=== PATIENT | female | born 1975 | race Caucasian/White ===

== ENCOUNTER 2022-04-06 17:04 | Emergency (ER) | payer OTHER, SELFPAY ==
[2022-04-06 17:11] VITALS: BP 127/82; PULSE 100; RESP 16; TEMP 37.1; O2SAT 100
[2022-04-06 17:22] VITALS: BP 127/82; PULSE 100; RESP 16; TEMP 37.1; O2SAT 100
--- NOTE | 2022-04-06 17:23 | ED.FEMALEGU ---
HPI - Female Genitourinary General Chief complaint: Urogenital-Female Stated complaint: Poss UTI Time Seen by Provider: 04/06/22 17:23 Source: patient, RN notes reviewed and old records reviewed Mode of arrival: ambulatory Limitations: no limitations History of Present Illness HPI Narrative: 46 year old female who presents to [facility] care with complaints of 1 week duration of urinary urgency,and suprapubic discomfort, patient reports that she has irritation when she urinated. Patient denies any vaginal drainage or itching. Patient denies any concern for any STD exposure. Patient denies any fevers, chills or sweats, denies any nausea or vomiting or any diarrhea.She denies any CVA tenderness or pain to right lower abdominal quadrant. MD elicited complaint: dysuria, UTI and other (suprapubic tenderness) Onset (ago): week(s) (1) Severity scale (1-10): 5 Related Data Home Medications Medication Instructions Recorded Confirmed buspirone 5 mg tablet 5 mg PO DAILY PRN Anxiety 04/06/22 04/06/22 omeprazole 40 mg capsule,delayed 40 mg PO DAILY 04/06/22 04/06/22 release Allergies Allergy/AdvReac Type Severity Reaction Status Date / Time No Known Allergies Allergy Verified 04/06/22 17:36 Review of Systems Review of Systems: CONSTITUTIONAL: Denies fever, chills, or sweats. EYES: Denies visual changes, redness, or discharge. ENT: Denies rhinorrhea, congestion, sore throat, or otalgia. CARDIOVASCULAR: Denies chest pain, palpitations, or edema. RESPIRATORY: Denies cough or dyspnea. GASTROINTESTINAL: Positive for suprapubic abdominal pain,no nausea, vomiting, or diarrhea. GENITOURINARY: Positive for urinary urgency some mild dysuria no visible hematuria. SKIN: Denies rash or itching. MUSCULOSKELETAL: Denies back pain, joint pain, or myalgia. NEUROLOGIC: Denies headache, numbness, or weakness. PSYCHIATRIC: Denies anxiety or depression. All systems reviewed & are unremarkable except as noted in HPI and below PMFSH Past Medical History Medical History (Updated 04/07/22 @ 00:00 by Naif Barajas) Femur fracture, right GERD (gastroesophageal reflux disease) Surgical History Surgical History (Updated 04/06/22 @ 18:31 by Leonor L. Carol, [employer]PERATOR) H/O tubal ligation History of nasal surgery Social History Social History (Updated 04/06/22 @ 18:37 by Leonor Medina NP) Smoking status: Never smoker Alcohol intake: current Alcohol use details: social rare Substance use: never Substance use type: does not use Living arrangements: with family Gender identity (if verbalized by the patient): Female Comments At time of signature, agree with nursing past medical, surgical, social and family history. There is no relevant family history pertinent to the presenting complaint Exam Narrative: GENERAL: Well-appearing, well-nourished, and in no acute distress. HEAD: Normocephalic, atraumatic. EYES: PERRLA and EOMI. ENT: Nares clear, no rhinorrhea or epistaxis. Mucous membranes moist.TM's normal with good light reflex, throat pink with no lesions or exudates or tonsil swelling NECK: Supple.no lymphadenopathy CHEST: Clear to auscultation. No respiratory distress.SAO2 100% on room air HEART: Regular rate and rhythm. No murmur heard. Normal peripheral pulses. ABDOMEN: Soft,tender suprapubic region, nondistended, normal active bowel sounds.No CVA tenderness on exam EXTREMITIES: Normal range of motion. No edema. SKIN: Warm, dry, no rash. NEURO: No focal deficits. Alert and oriented x3. Course Course Level of Care: Express Care Visit Vital Signs Vital signs: Vital Signs Temperature 37.1 C 04/06/22 17:11 Pulse Rate 100 04/06/22 17:11 Respiratory Rate 16 04/06/22 17:11 Blood Pressure 127/82 04/06/22 17:11 Pulse Oximetry 100 04/06/22 17:11 Oxygen Delivery Room Air 04/06/22 17:11 Temperature 37.1 C 04/06/22 17:22 Pulse Rate 100 04/06/22 17:22 Respiratory Rate 16 04/06/22 17:22 Blood Pr
== END 2022-04-06 17:30 | disposition home or self-care (01) ==
PROVIDERS: Emergency Provider Registered Nurse; PCP Family Medicine
DX: N39.0 Urinary tract infection, site not specified (principal); K21.9 Gastro-esophageal reflux disease without esophagitis
CPT/HCPCS: 81003; 87077; 87086; 87186; 99213; G0463

== ENCOUNTER 2023-04-12 13:53 | Emergency (ER) | payer OTHER, SELFPAY ==
[2023-04-12 14:00] VITALS: BP 117/89; PULSE 97; RESP 14; TEMP 36.8; O2SAT 100
--- NOTE | 2023-04-12 14:09 | ED.BACK ---
HPI - Back Pain/Injury General Chief Complaint: Back Pain/Injury Stated Complaint: Lower Back Pain and Spasms History of Present Illness HPI Narrative: PATIENT PRESENTS WITH LOW BACK PAIN. PATIENT THINKS SHE BENT OVER RHONCHI PULLED THE MUSCLES IN HER LOWER BACK. NO NUMBNESS AND TINGLING NO BOWEL OR BLADDER PROBLEMS. Related Data Home Medications Medication Instructions Recorded Confirmed nitrofurantoin 04/12/23 monohydrate/macrocrystals 100 mg capsule omeprazole 40 mg capsule,delayed mg 04/12/23 release Allergies Allergy/AdvReac Type Severity Reaction Status Date / Time No Known Allergies Allergy Verified 04/06/22 17:36 Review of Systems Review of Systems: CONSTITUTIONAL: DENIES FEVER, CHILLS, OR SWEATS. EYES: DENIES VISUAL CHANGES, REDNESS, OR DISCHARGE. ENT: DENIES RHINORRHEA, CONGESTION, SORE THROAT, OR OTALGIA. CARDIOVASCULAR: DENIES CHEST PAIN, PALPITATIONS, OR EDEMA. RESPIRATORY: DENIES COUGH OR DYSPNEA. GASTROINTESTINAL: DENIES ABDOMINAL PAIN, NAUSEA, VOMITING, OR DIARRHEA. GENITOURINARY: DENIES DYSURIA OR HEMATURIA. SKIN: DENIES RASH OR ITCHING. MUSCULOSKELETAL: DENIES BACK PAIN, JOINT PAIN, OR MYALGIA. NEUROLOGIC: DENIES HEADACHE, NUMBNESS, OR WEAKNESS. PSYCHIATRIC: DENIES ANXIETY OR DEPRESSION. [facility] Past Medical History Medical History (Updated 04/12/23 @ 14:13 by RICHARD Reyes) Femur fracture, right GERD (gastroesophageal reflux disease) Surgical History Surgical History (Updated 04/06/22 @ 18:31 by Leonor Medina NP) H/O tubal ligation History of nasal surgery Social History Social History (Updated 04/06/22 @ 18:37 by Leonor Medina NP) Smoking status: Never smoker Alcohol intake: current Alcohol use details: social rare Substance use: never Substance use type: does not use Living arrangements: with family Gender identity (if verbalized by the patient): Female Comments AT TIME OF SIGNATURE, AGREE WITH NURSING PAST MEDICAL, SURGICAL, SOCIAL AND FAMILY HISTORY. THERE IS NO RELEVANT FAMILY HISTORY PERTINENT TO THE PRESENTING COMPLAINT Exam Narrative: GENERAL: WELL-APPEARING, WELL-NOURISHED, AND IN NO ACUTE DISTRESS. HEAD: NORMOCEPHALIC, ATRAUMATIC. EYES: PERRLA AND EOMI. ENT: NARES CLEAR, NO RHINORRHEA OR EPISTAXIS. MUCOUS MEMBRANES MOIST. NECK: SUPPLE. CHEST: CLEAR TO AUSCULTATION. NO RESPIRATORY DISTRESS. HEART: REGULAR RATE AND RHYTHM. NO MURMUR HEARD. NORMAL PERIPHERAL PULSES. ABDOMEN: SOFT, NONTENDER, NONDISTENDED, NORMAL ACTIVE BOWEL SOUNDS. EXTREMITIES: NORMAL RANGE OF MOTION. NO EDEMA.T ENTERED EXAM ROOM WITH NO DIFFICULTY WITH AMBULATION. NO SIGNIFICANT RESTRICTIONS WITH FLEXION AND EXTENSION OF BACK. VERTEBRAE/SPINE NONTENDER TO PALPATION, NO STEP OFFS. MOTOR, STRENGTH INTACT. SENSATIONS GROSSLY INTACT OF LE. SKIN: WARM, DRY, NO RASH. NEURO: NO FOCAL DEFICITS. ALERT AND ORIENTED X3. WENDY COMA SCALE EYE OPENING: SPONTANEOUS 4 WENDY COMA SCALE MOTOR: OBEYS COMMANDS 6 WENDY COMA SCALE VERBAL: ORIENTED 5 WENDY COMA SCALE TOTAL 15 Course Course Level of Care: Express Care Visit Vital Signs Vital signs: Vital Signs Temperature 36.8 C 04/12/23 14:00 Pulse Rate 97 04/12/23 14:00 Respiratory Rate 14 04/12/23 14:00 Blood Pressure 117/89 04/12/23 14:00 Pulse Oximetry 100 04/12/23 14:00 Oxygen Delivery Room Air 04/12/23 14:00 Temperature 36.8 C 04/12/23 14:00 Pulse Rate 97 04/12/23 14:00 Respiratory Rate 14 04/12/23 14:00 Blood Pressure 117/89 04/12/23 14:00 Pulse Oximetry 100 04/12/23 14:00 Oxygen Delivery Room Air 04/12/23 14:00 MUSCLE PROBLEM DISCUSSED WITH PATIENT THAT LIKELY A MUSCULOSKELETAL PROBLEM THAT CANNOT BE COMPLETELY EVALUATED AND TREATED TODAY. DISCUSSED MRI/PHYSICAL THERAPY RECOMMENDED IF SYMPTOMS CONTINUE OR WORSEN. MRI/PHYSICAL THERAPY CAN HELP WITH FURTHER EVALUATION AND TREATMENT. FOLLOW UP WITH PCP FOR FURTHER EVALUATION. REST, ICE, ANTI-INFL
== END 2023-04-12 14:17 | disposition home or self-care (01) ==
PROVIDERS: Emergency Provider Nurse Practitioner Family; PCP Family Medicine
DX: S39.012A Strain of muscle, fascia and tendon of lower back, initial encounter (principal); X58.XXXA Exposure to other specified factors, initial encounter; K21.9 Gastro-esophageal reflux disease without esophagitis
CPT/HCPCS: 99213; G0463